=== PATIENT | male | born 1935 | race Caucasian/White ===

== ENCOUNTER → 2016-07-20 | Outpatient (CLI) | payer MEDICARE ==
[~2016-07-20] MED LIST: ALFU10TA3; TAMS0.4C4 PO
[2016-07-20 14:05] LABS: AUTOMATED NEUTROPHIL # 4.3 TH/MM3 (1.8-7.7); BASOPHIL # 0.1 TH/MM3 (0-0.2); BASOPHIL % 0.9 % (0.0-2.0); EOSINOPHIL # 0.3 TH/MM3 (0-0.4); EOSINOPHIL % 4.1 % (0.0-4.0); HEMATOCRIT 43.4 % (39.0-51.0); HEMO FLAGS DIFF FINAL; LYMPH % 33.8 % (9.0-44.0); LYMPHOCYTE # 2.7 TH/MM3 (1.0-4.8); MEAN CELL VOLUME 84.3 FL (80.0-100.0); MEAN CORPUSCULAR HEMOGLOBIN 28.5 PG (27.0-34.0); MEAN CORPUSCULAR HGB CONC 33.8 % (32.0-36.0); NEUT % 54.2 % (16.0-70.0); PLATELET COUNT 198 TH/MM3 (150-450); RED BLOOD COUNT 5.15 MIL/MM3 (4.50-5.90); RED CELL DISTRIBUTION WIDTH 13.4 % (11.6-17.2); WHITE BLOOD COUNT 7.9 TH/MM3 (4.0-11.0)
--- NOTE | 2016-07-21 14:13 | EKG ---
Date Performed: 07/20/2016 Time Performed: 12:43:52 PTAGE: 81 years EKG: Sinus rhythm WITH SINUS ARRHYTHMIA NORMAL ECG NO PREVIOUS TRACING DOCTOR: Deon Cevallos Interpretating Date/Time 07/21/2016 14:05:24
== END ==
LOC: CPRE 12:19
PROVIDERS: ATTEND Ophthalmology
DX: Z01.810 Encounter for preprocedural cardiovascular examination (principal); Z01.812 Encounter for preprocedural laboratory examination; H26.9 Unspecified cataract; I49.8 Other specified cardiac arrhythmias
CPT/HCPCS: 36415; 85025; 93005

== ENCOUNTER → 2016-08-03 | Day surgery (SDC) | payer MEDICARE ==
--- NOTE | 2016-07-27 16:55 | MH ---
cc: PATTI NATHAN DATE OF ADMISSION 08/03/2016 ADMISSION DIAGNOSIS Cataract left eye. HISTORY OF PRESENT ILLNESS This 81-year-old white male is coming through [facility] for the purpose of a lens extraction of the left eye with intraocular lens implant under local anesthesia. He has noticed decreasing visual acuity interfering with his daily activities and elected to have the above procedure. His best corrected visual acuity is 20/20 -2 in the right eye and 20/50 in the left eye. PAST MEDICAL HISTORY The patient has a history of enlarged prostate. PAST SURGICAL HISTORY His surgical history includes: 1. Right elbow fracture surgery. 2. And a cyst on the upper back. MEDICATIONS Daily medications include: 1. Alfuzosin. 2. Advil p.r.n. ALLERGIES HE IS ALLERGIC TO PENICILLIN. SOCIAL HISTORY One-half pack per day smoker for 25 years and currently smoke free. And drinks alcohol socially. FAMILY HISTORY Positive for brother with cataracts. REVIEW OF SYSTEMS HEAD: Patient denies severe headaches, dizziness or recent head injury. EARS: Patient occasionally gets ear wax build up from his ears. Patient denies hearing loss, ear pain, discharge or ringing in the ears. NOSE: Patient denies nasal discharge, obstruction or frequent colds. MOUTH AND THROAT: Patient denies soreness of the mouth or tongue, bleeding gums, trouble swallowing, changes in voice or sore throat. NECK: He does get some tingling in his left hand fingers which he feels may be pinched nerve in his neck. Otherwise there is no limitation of neck movement or neck injury. Patient denies neck pain or swelling, limitation of neck movement or neck injury. CARDIOPULMONARY SYSTEM: Patient denies shortness of breath, orthopnea, chronic cough, sputum production, hemoptysis, chest pain, wheezing, palpitations or light-headedness. GI SYSTEM: Patient denies poor appetite, nausea, vomiting, abdominal pain, ulcers, hemorrhoids or change in bowel habits. SYSTEM: Due to the enlarged prostate the patient has urinary frequency day and night and is taking alfuzosin. The patient denies urinary frequency, dysuria, change in urine color. NERVOUS SYSTEM: Patient denies convulsions, vertigo, stroke, numbness or weakness. PHYSICAL EXAMINATION VITAL SIGNS: Blood pressure is 142/90, pulse 54, respirations 20. HEAD: Normocephalic, atraumatic. NOSE: Without rhinorrhea. THROAT: Clear. NECK: Supple. CHEST: Clear. HEART: Regular rhythm. ABDOMEN: Without tenderness. EXTREMITIES: Without edema. NEUROLOGICAL: Within normal limits. MENTAL STATUS: Within normal limits. EYE EXAMINATION The patient's best corrected visual acuity is 20/20 -2 in the right eye and 20/50 in the left. Visual alves are full to confrontation testing. Extraocular muscle exam reveals full versions with orthophoria at distance and exophoria at near. Pupils are 3 mm equal, round, reactive to light without afferent defect. Anterior segment examination reveals a nuclear sclerotic and posterior cortical cataract change bilaterally. Intraocular pressure is 20 in the right eye and 23 in the left by applanation tonometry. Dilated fundus exam revealed sharp disk with cup-to-disk ratio 0.5 in the right eye and 0.45 in the left. The macula is clear and a posterior vitreous detachment is present bilaterally. IMPRESSION 1. Bilateral cataracts. 2. Posterior vitreous detachment both eyes. 3. Glaucoma suspect, low-risk both eyes. PLAN And the plan is lens extraction of the left eye with intraocular lens implant under local anesthesia through [facility]. The patient has been cleared medically. He has been counseled as to the risks, benefits and alternatives and elected to proceed. I feel that cataract surgery will improve the quality of life and activities of daily living in this patient. MD TIMUR Ahuja/FRACISCO /3:19 PM /4:32 PM
[~2016-08-03] VITALS: Ht 175.3 cm; Wt 99.5 kg
[~2016-08-03] MED LIST changes: +ACETAMINOPHEN 500 MG CPLT ONE; +ACETYLCHOLINE CHL OPHT SOLN 1:100 2 ML VIAL ONE; +EPINEPHrine HCL (1:1000) 1 MG/ML VIAL ONE; +HYALURONIDASE/LIDOCAINE/BUPIVACAINE 4.5 ML SYR LEFT EYE ONE; +HYALURONIDASE/LIDOCAINE/BUPIVACAINE 4.5 ML SYR ONE; +HYALURONIDASE/LIDOCAINE/BUPIVACAINE 6 ML SYR LEFT EYE ONE; +HYALURONIDASE/LIDOCAINE/BUPIVACAINE 6 ML SYR ONE; +PROPARACAINE HCL 0.5% OPHT SOLN 15 ML BTL LEFT EYE ONE; +PROPOFOL 200 MG/20 ML AMP ONE; +SODIUM CHLORID 0.9% 500 ML INJ 500 ML ONE; +VISCOAT OPHT IRRIG SOLN 0.75 ML SYRINGE LEFT EYE ONE; +acetaZOLAMIDE SEQUELS 500 MG SUSTAINED RELEASE CAP ONE
[2016-08-03 08:30] VITALS: BP 140/89; PULSE 61; RESP 18; TEMP 97.7; O2SAT 94
[2016-08-03] MEDS: GATIFLOXACIN 0.5% OPHT SOLN 2.5 ML BTL LEFT EYE SCH ×4 (08:32→08:41)
[2016-08-03] MEDS: CYCLOPENTOLATE HCL 1% OPHT SOLN 2 ML BTL LEFT EYE SCH ×4 (08:32→08:41)
[2016-08-03] MEDS: PHENYLEPHRINE HCL 2.5% OPTH SOLN 2 ML BTL LEFT EYE SCH ×4 (08:32→08:41)
[2016-08-03] MEDS: TROPICAMIDE 1% OPHT SOLN 15 ML BTL LEFT EYE SCH ×4 (08:32→08:41)
[2016-08-03] MEDS: DICLOFENAC SOD 0.1% OPHT SOLN 2.5 ML BTL LEFT EYE SCH ×4 (08:32→08:41)
[2016-08-03 08:35] VITALS: PULSE 61
[2016-08-03 09:24] VITALS: PULSE 60
[2016-08-03] MEDS: PILOCARPINE HCL 2% OPHT SOLN 15 ML BTL ONE ×2 (11:20→11:44)
[2016-08-03] MEDS: TOBRAMYCIN/DEXAMETHASONE OPTH OINT 3.5 GM TUBE ONE ×2 (11:20→11:44)
[2016-08-03 12:20] VITALS: BP 127/92; PULSE 80; RESP 16; O2SAT 98
--- NOTE | 2016-08-06 13:45 | MP ---
cc: PATTI ALMENDAREZ DATE OF SURGERY 08/03/2016 POSTOPERATIVE DIAGNOSIS Cataract left eye. OPERATION Extracapsular cataract extraction with posterior chamber intraocular lens implant by phacoemulsification, left eye. SURGEON Patti Almendarez M.D. ANESTHESIA Local COMPLICATIONS None INDICATIONS See history and physical previously dictated. OPERATIVE PROCEDURE The patient had adequate retrobulbar and eyelid blocks administered in the holding area and was brought to the operating room. The left eye was prepped and draped in the usual sterile ophthalmic manner. A lid speculum was inserted in the left eye. A 4-0 silk bridle suture was placed through the conjunctiva near the superior rectus muscle and it was tagged to the drape. A fornix-based conjunctival flap was prepared spanning approximately 5 mm in width. Hemostasis was obtained with wet-field cautery. A 3.5 mm groove was made 1 mm from the limbus and dissected up to the limbus in the form of a scleral pocket incision. A stab incision was then made at the 2 o'clock position. Viscoelastic was injected into the anterior chamber. The anterior chamber was entered with a 2.75 mm keratome through the scleral pocket incision. A 360 degree continuous curvilinear capsulorrhexis was then performed. Hydrodissection was utilized to divide the nucleus into inner and outer components and to separate the cortex from the capsule. Phacoemulsification was then utilized to remove the nucleus. The outer nuclear layer was removed with irrigation and aspiration and short bursts of ultrasound as necessary. The cortex was removed with the irrigation/aspiration handpiece. The posterior capsule was polished with the capsule polisher. Viscoelastic was injected into the capsular bag. The intraocular lens was inspected and found to be in good condition. The lens utilized was a Rubin, model number SA60AT with a power of +21 diopters. The lens was inserted into the capsular bag. The viscoelastic in the anterior chamber was then removed with the irrigation-aspiration handpiece. Viscoelastic was also removed from beneath the intraocular lens. The anterior chamber was filled with Miochol-E through the stab incision and pressurized. The wound was checked for leaks at this pressure and normalized pressure and there were none. The 4-0 bridle suture was removed. The conjunctival flap was brought down over the wound and secured with cautery. Pilocarpine 2% eye drops were instilled topically. The lid speculum was removed. TobraDex ophthalmic ointment was applied. The eye was double patched and shielded. The patient tolerated the procedure well and left the Operating Room in satisfactory condition. MD TIMUR Ahuja/COCO /11:55 AM /1:43 PM
== END | disposition home or self-care (01) ==
LOC: CSDC 07:59 → EDUNIT# 10:00
PROVIDERS: ATTEND Ophthalmology
DX: H25.812 Combined forms of age-related cataract, left eye (principal); N40.0 Benign prostatic hyperplasia without lower urinary tract symptoms; Z87.891 Personal history of nicotine dependence; Z83.518 Family history of other specified eye disorder
CPT/HCPCS: 00142; 66984; J0171; J7040; V2632